=== PATIENT | female | born 2000 | race Caucasian/White ===

== ENCOUNTER 2018-12-27 12:48 | Inpatient (IN) | payer BC ==
--- NOTE | 2018-12-27 13:55 | ED ---
Psych HPI - General Chief Complaint: Psychiatric Symptoms Stated Complaint: Psych evaluation Time Seen by Provider: 12/27/18 13:04 Source: patient, RN notes reviewed Mode of arrival: ambulatory - History of Present Illness Initial Comments: Is a 18-year-old female who presents by the parents with complaints of depression and desire to jump out of a moving vehicle this morning. She states she's been dealing with depression for about a month and a half now she states she had an argument about a week ago significant other which also involved her biological father. He denies any drugs or alcohol or other modifying factors at this time. She states she also decreased appetite she is purposely trying to avoid certain foods. No prior diagnosis or history of depression and prior to these recent events patient does state her last menstrual period was December 12 of this year. MD Complaint: suicidal ideation, feels depressed - Related Data Home Medications Medication Instructions Recorded Confirmed No Known Home Medications 12/27/18 12/27/18 Allergies Allergy/AdvReac Type Severity Reaction Status Date / Time No Known Allergies Allergy Verified 12/27/18 13:16 Review of Systems ROS Statement: Those systems with pertinent positive or pertinent negative responses have been documented in the HPI. ROS Other: All systems not noted in ROS Statement are negative. Past Medical History Past Medical History: No Reported History History of Any Multi-Drug Resistant Organisms: None Reported Additional Past Surgical History / Comment(s): eye surgery Past Psychological History: Depression Smoking Status: Never smoker Past Alcohol Use History: None Reported Past Drug Use History: None Reported General Exam - General Exam Comments Initial Comments: This is a well-developed well-nourished awake alert oriented 3 female Limitations: no limitations General appearance: alert, in no apparent distress Head exam: Present: atraumatic, normocephalic, normal inspection Eye exam: Present: normal appearance, PERRL, EOMI. Absent: scleral icterus, conjunctival injection, periorbital swelling ENT exam: Present: normal exam, mucous membranes moist Neck exam: Present: normal inspection. Absent: tenderness, meningismus, lymphadenopathy Respiratory exam: Present: normal lung sounds bilaterally. Absent: respiratory distress, wheezes, rales, rhonchi, stridor Cardiovascular Exam: Present: regular rate, normal rhythm, normal heart sounds. Absent: systolic murmur, diastolic murmur, rubs, gallop, clicks GI/Abdominal exam: Present: soft, normal bowel sounds. Absent: distended, tenderness, guarding, rebound, rigid Extremities exam: Present: normal inspection, full ROM, normal capillary refill. Absent: tenderness, pedal edema, joint swelling, calf tenderness Back exam: Present: normal inspection Neurological exam: Present: alert, oriented X3, CN II-XII intact Psychiatric exam: Present: depressed, flat affect, suicidal ideation Skin exam: Present: warm, dry, normal color, other (Several areas on the forearms appear to be consistent with picking.). Absent: rash Course Vital Signs 12/27/18 12/27/18 12/27/18 12:56 15:15 17:15 Temperature 98.5 F Pulse Rate 83 Respiratory 18 17 18 Rate Blood Pressure 141/85 O2 Sat by Pulse 99 Oximetry - Reevaluation(s) Reevaluation #1: 12/27/18 16:25 Patient later complained of a 7/10 headache some recent shakiness. Further workup is in progress Medical Decision Making - Medical Decision Making Patient was evaluated by the psychiatric service and will be admitted for inpatient treatment of depression. The lab work and CAT scan were negative. I did discuss with the patient and her family. - Lab Data Result diagrams: 12/27/18 16:50 12/27/18 16:50 Lab Results 12/27/18 12/27/18 12/27/18 Range/Units 14:00 14:00 16:50 WBC 8.7 (4.0-11.0) k/uL RBC 4.68 (3.80-5.40) m/uL Hgb 13.6 (11.4-16.0) gm/dL Hct 40.6 (34.0-46.0) % MCV 86.8 (80.0-100.0) fL MCH 29.0 (25.0-35.0) pg MCHC 33.4 (31.0-37.0) g/dL RDW 12.8 (11.5-15.5) % Plt Count 336 (150-450) k/uL Neutrophils % 70 % Lymphocytes % 21 % Monocytes % 5 % Eosinophils % 2 % Basophils % 1 % Neutrophils # 6.1 (1.3-7.7) k/uL Lymphocytes # 1.8 (1.0-4.8) k/uL Monocytes # 0.5 (0-1.0) k/uL Eosinophils # 0.2 (0-0.7) k/uL Basophils # 0.0 (0-0.2) k/uL Sodium (137-145) mmol/L Potassium (3.5-5.1) mmol/L Chloride (98-107) mmol/L Carbon Dioxide (22-30) mmol/L Anion Gap mmol/L BUN (7-17) mg/dL Creatinine (0.52-1.04) mg/dL Est GFR (CKD-EPI)AfAm (>60 ml/min/1.73 sqM) Est GFR (CKD-EPI)NonAf (>60 ml/min/1.73 sqM) Glucose (74-99) mg/dL Calcium (8.4-10.2) mg/dL Magnesium (1.6-2.3) mg/dL Total Bilirubin (0.2-1.3) mg/dL AST (14-36) U/L ALT (9-52) U/L Alkaline Phosphatase (38-126) U/L Creatine Kinase (30-135) U/L Total Protein (6.3-8.2) g/dL Albumin (3.5-5.0) g/dL Urine HCG, Qual Not Detected (Not Detectd) Urine Opiates Screen Not Detected (NotDetected) Ur Oxycodone Screen Not Detected (NotDetected) Urine Methadone Screen Not Detected (NotDetected) Ur Propoxyphene Screen Not Detected (NotDetected) Ur Barbiturates Screen Not Detected (NotDetected) U Tricyclic Antidepress Not Detected (NotDetected) Ur Phencyclidine Scrn Not Detected (NotDetected) Ur Amphetamines Screen Not Detected (NotDetected) U Methamphetamines Scrn Not Detected (NotDetected) U Benzodiazepines Scrn Not Detected (NotDetected) Urine Cocaine Screen Not Detected (NotDetected) U Marijuana (THC) Screen Not Detected (NotDetected) 12/27/18 Range/Units 16:50 WBC (4.0-11.0) k/uL RBC (3.80-5.40) m/uL Hgb (11.4-16.0) gm/dL Hct (34.0-46.0) % MCV (80.0-100.0) fL MCH (25.0-35.0) pg MCHC (31.0-37.0) g/dL RDW (11.5-15.5) % Plt Count (150-450) k/uL Neutrophils % % Lymphocytes % % Monocytes % % Eosinophils % % Basophils % % Neutrophils # (1.3-7.7) k/uL Lymphocytes # (1.0-4.8) k/uL Monocytes # (0-1.0) k/uL Eosinophils # (0-0.7) k/uL Basophils # (0-0.2) k/uL Sodium 141 (137-145) mmol/L Potassium 4.3 (3.5-5.1) mmol/L Chloride 102 (98-107) mmol/L Carbon Dioxide 26 (22-30) mmol/L Anion Gap 13 mmol/L BUN 5 L (7-17) mg/dL Creatinine 0.54 (0.52-1.04) mg/dL Est GFR (CKD-EPI)AfAm >90 (>60 ml/min/1.73 sqM) Est GFR (CKD-EPI)NonAf >90 (>60 ml/min/1.73 sqM) Glucose 88 (74-99) mg/dL Calcium 10.2 (8.4-10.2) mg/dL Magnesium 1.8 (1.6-2.3) mg/dL Total Bilirubin 0.3 (0.2-1.3) mg/dL AST 20 (14-36) U/L ALT 24 (9-52) U/L Alkaline Phosphatase 72 (38-126) U/L Creatine Kinase 55 (30-135) U/L Total Protein 8.7 H (6.3-8.2) g/dL Albumin 5.0 (3.5-5.0) g/dL Urine HCG, Qual (Not Detectd) Urine Opiates Screen (NotDetected) Ur Oxycodone Screen (NotDetected) Urine Methadone Screen (NotDetected) Ur Propoxyphene Screen (NotDetected) Ur Barbiturates Screen (NotDetected) U Tricyclic Antidepress (NotDetected) Ur Phencyclidine Scrn (NotDetected) Ur Amphetamines Screen (NotDetected) U Methamphetamines Scrn (NotDetected) U Benzodiazepines Scrn (NotDetected) Urine Cocaine Screen (NotDetected) U Marijuana (THC) Screen (NotDetected) - Radiology Data Radiology results: report reviewed (I did review the imaging and report no acute findings.), image reviewed Disposition Clinical Impression: Depression Disposition: TRANSFER TO PSYCH HOSP/UNIT Condition: Stable Referrals: Contreras Watters MD [Primary Care Provider] - 1-2 days
[2018-12-27 14:35] LABS: Amphetamine Screen,Urine Not Detected (NotDetected); Barbiturate Screen,Urine Not Detected (NotDetected); Benzodiazepines Screen,Urine Not Detected (NotDetected); Cocaine Screen,Urine Not Detected (NotDetected); Methadone Screen, Urine Not Detected (NotDetected); Opiate Screen,Urine Not Detected (NotDetected); Oxycodone Screen, Urine Not Detected (NotDetected); Phencyclidine Screen,Urine Not Detected (NotDetected); Tricyclic Antidepressant,Urine Not Detected (NotDetected); Urn Cannabinoid Scrn Not Detected (NotDetected)
[2018-12-27] MEDS ORDERED: ACETAMINOPHEN TAB 500 MG TAB PO STA (16:23)
[2018-12-27 17:01] LABS: Basophils % (A) 1 %; Eosinophils # (A) 0.2 k/uL (0-0.7); Eosinophils % (A) 2 %; HCT 40.6 % (34.0-46.0); HGB 13.6 gm/dL (11.4-16.0); Lymphocytes # (A) 1.8 k/uL (1.0-4.8); Lymphocytes % (A) 21 %; MCHC 33.4 g/dL (31.0-37.0); MCV 86.8 fL (80.0-100.0); Mean Platelet Volume 7.7; Monocytes # (A) 0.5 k/uL (0-1.0); Monocytes % (A) 5 %; Neutrophils # (A) 6.1 k/uL (1.3-7.7); Neutrophils % (A) 70 %; Platelet Count 336 k/uL (150-450); RBC 4.68 m/uL (3.80-5.40); RDW 12.8 % (11.5-15.5); WBC 8.7 k/uL (4.0-11.0)
[2018-12-27 17:10] LABS: ALT 24 U/L (9-52); AST 20 U/L (14-36); African American GFR (CKD) >90 (>60 ml/min/1.73 sqM); Alkaline Phosphatase 72 U/L (38-126); Anion Gap 13 mmol/L; Blood Urea Nitrogen 5 mg/dL (7-17); Calcium 10.2 mg/dL (8.4-10.2); Carbon Dioxide 26 mmol/L (22-30); Chloride 102 mmol/L (98-107); Creatine Kinase 55 U/L (30-135); Glucose 88 mg/dL (74-99); Magnesium 1.8 mg/dL (1.6-2.3); Potassium 4.3 mmol/L (3.5-5.1); Sodium 141 mmol/L (137-145); Total Bilirubin 0.3 mg/dL (0.2-1.3); Total Protein 8.7 g/dL (6.3-8.2)
--- NOTE | 2018-12-27 17:14 | CT ---
EXAMINATION TYPE: CT brain wo con DATE OF EXAM: 12/27/2018 COMPARISON: None HISTORY: Headaches CT DLP: 1099.4 mGycm. Automated Exposure Control for Dose Reduction was Utilized. TECHNIQUE: CT scan of the head is performed without contrast. FINDINGS: Ventricles and sulci appear normal. There is no mass effect nor midline shift. There is no sign of intracranial hemorrhage. The calvarium is intact. IMPRESSION: Negative head CT scan.
[2018-12-27] MEDS ORDERED: ZIPRASIDONE 20 MG VIAL IM PRN (23:57)
[2018-12-27] MEDS ORDERED: MAG HYDROX/AL HYDROX/SIMETH 30 ML CUP PO PRN (23:57)
[2018-12-27] MEDS ORDERED: LORazepam 1 MG TAB PO PRN (23:57)
[2018-12-27] MEDS ORDERED: LORazepam 2 MG/ML INJ IM PRN (23:59)
[2018-12-28 00:17] VITALS: BMI 32.1
--- NOTE | 2018-12-28 07:10 | P.MDCNMH ---
History of Present Illness H&P Date: 12/28/18 Chief Complaint: Depression 18-year-old female with no significant past medical history Patient presented to Hospital with depressed mood she reports couple weeks of feeling down and hopeless denies any suicidal ideation or homicidal thoughts. She has never had any mental health diagnoses in the past. Denies any medical history. She doesn't take any medications at home. Patient denies any fevers chills coughing chest pain trouble breathing abdominal pain nausea vomiting or any changes in her urinary or bowel habits. Review of Systems Pertinent positives as noted in HPI. All other systems were reviewed and are negative Past Medical History Past Medical History: No Reported History History of Any Multi-Drug Resistant Organisms: None Reported Additional Past Surgical History / Comment(s): eye surgery Past Anesthesia/Blood Transfusion Reactions: No Reported Reaction Past Psychological History: Depression Smoking Status: Never smoker Past Alcohol Use History: None Reported Past Drug Use History: None Reported - Past Family History Mother Family Medical History: No Reported History Father Family Medical History: No Reported History Medications and Allergies Home Medications Medication Instructions Recorded Confirmed Type No Known Home Medications 12/27/18 12/28/18 History Allergies Allergy/AdvReac Type Severity Reaction Status Date / Time No Known Allergies Allergy Verified 12/28/18 00:02 Physical Exam Vitals: Vital Signs Temp Pulse Pulse Resp BP BP Pulse Ox 12/28/18 06:43 98.2 F 89 16 127/72 12/28/18 00:06 98.5 F 82 16 129/86 100 12/27/18 23:49 98.5 F 82 16 129/86 100 12/27/18 21:44 98.3 F 78 18 113/76 98 12/27/18 17:15 18 12/27/18 15:15 17 12/27/18 12:56 98.5 F 83 18 141/85 99 Constitutional: No acute distress, conversant, pleasant Eyes: Anicteric sclerae, moist conjunctiva, no lid-lag, positive for horizontal nystagmus Pupils equal round reactive to light ENMT: NC/AT Oropharynx clear, no erythema, or exudates Neck: Supple, FROM, no masses, or JVD No carotid bruits No thyromegaly Lungs: Clear to auscultation Clear to percussion Normal respiratory effort, no accessory muscle use Cardiovascular: Heart regular in rate and rhythm, No murmurs, gallops, or rubs No peripheral edema Abdominal: Soft Nontender, no guarding, rebound or rigidity Abdomen moving with respiration Normoactive bowel sounds No hepatomegaly, No splenomegaly No palpable mass No abdominal wall hernia noted Skin: Normal temperature, tone, texture, turgor No induration No subcutaneous nodules No rash, lesions No ulcers Extremities: No digital cyanosis No clubbing Pedal pulses intact and symmetrical Radial pulses intact and symmetrical No calf tenderness Psychiatric: Alert and oriented to person, place and time Avoids eye contact flat affect fair judgment Neuro Muscles Strength 5/5 in all 4 extremities Sensation to light touch grossly present throughout Cranial nerves II-XII grossly intact, exception to this patient has some degree of lazy eye with history of corrective surgery No focal sensory deficits Lymphatics: no palpable cervical or supraclavicular , or inguinal lymph nodes Cranial Nerve Examination - Cranial Nerves Cranial Nerve II- Optic: Intact Cranial Nerve III- Oculomotor: Intact Cranial Nerve IV- Trochlear: Intact Cranial Nerve V- Trigeminal: Intact Cranial Nerve - Abducens: Intact Cranial Nerve VII- Facial: Intact Cranial Nerve VIII- Auditory: Intact Cranial Nerve IX- Glossopharyngeal: Intact Cranial Nerve X- Vagus: Intact Cranial Nerve XI- Accessory: Intact Cranial Nerve XII- Hypoglossal: Intact Results CBC & Chem 7: 12/27/18 16:50 12/27/18 16:50 Labs: Abnormal Lab Results - Last 24 Hours (Table) 12/27/18 Range/Units 16:50 BUN 5 L (7-17) mg/dL Total Protein 8.7 H (6.3-8.2) g/dL Assessment and Plan Assessment: 18-year-old female with no significant past medical history admitted to mental health unit due to overwhelming depression currently denies any medical complaints Plan: Depression Management per psych Low risk for DVT patient is ambulatory Follow-up labs Thank you for allowing us to participate in the care of this patient. We will follow peripherally. Do not hesitate to contact us with questions. Someone can be reached from the [facility] hospitalist group at all hours of the day at [phone].
[2018-12-28] MEDS: SERTRALINE 50 MG TAB PO SCH (13:07)
--- NOTE | 2018-12-28 13:21 | P.HP ---
Psychiatric H&P - . H&P Date: 12/28/18 History & Physical: Allergies Allergy/AdvReac Type Severity Reaction Status Date / Time No Known Allergies Allergy Verified 12/28/18 00:02 Vital Signs Temp 98.2 F 12/28/18 06:43 Pulse 89 12/28/18 06:43 Resp 16 12/28/18 06:43 BP 127/72 12/28/18 06:43 Pulse Ox 100 12/28/18 00:06 Intake & Output 12/27/18 12/28/18 12/28/18 18:59 06:59 18:59 Weight 92.986 kg Laboratory Last Values WBC 8.7 k/uL (4.0-11.0) 12/27/18 16:50 RBC 4.68 m/uL (3.80-5.40) 12/27/18 16:50 Hgb 13.6 gm/dL (11.4-16.0) 12/27/18 16:50 Hct 40.6 % (34.0-46.0) 12/27/18 16:50 MCV 86.8 fL (80.0-100.0) 12/27/18 16:50 MCH 29.0 pg (25.0-35.0) 12/27/18 16:50 MCHC 33.4 g/dL (31.0-37.0) 12/27/18 16:50 RDW 12.8 % (11.5-15.5) 12/27/18 16:50 Plt Count 336 k/uL (150-450) 12/27/18 16:50 Neutrophils % 70 % 12/27/18 16:50 Lymphocytes % 21 % 12/27/18 16:50 Monocytes % 5 % 12/27/18 16:50 Eosinophils % 2 % 12/27/18 16:50 Basophils % 1 % 12/27/18 16:50 Neutrophils # 6.1 k/uL (1.3-7.7) 12/27/18 16:50 Lymphocytes # 1.8 k/uL (1.0-4.8) 12/27/18 16:50 Monocytes # 0.5 k/uL (0-1.0) 12/27/18 16:50 Eosinophils # 0.2 k/uL (0-0.7) 12/27/18 16:50 Basophils # 0.0 k/uL (0-0.2) 12/27/18 16:50 Sodium 141 mmol/L (137-145) 12/27/18 16:50 Potassium 4.3 mmol/L (3.5-5.1) 12/27/18 16:50 Chloride 102 mmol/L (98-107) 12/27/18 16:50 Carbon Dioxide 26 mmol/L (22-30) 12/27/18 16:50 Anion Gap 13 mmol/L 12/27/18 16:50 BUN 5 mg/dL (7-17) L 12/27/18 16:50 Creatinine 0.54 mg/dL (0.52-1.04) 12/27/18 16:50 Est GFR (CKD-EPI)AfAm >90 (>60 ml/min/1.73 sqM) 12/27/18 16:50 Est GFR (CKD-EPI)NonAf >90 (>60 ml/min/1.73 sqM) 12/27/18 16:50 Glucose 88 mg/dL (74-99) 12/27/18 16:50 Calcium 10.2 mg/dL (8.4-10.2) 12/27/18 16:50 Magnesium 1.8 mg/dL (1.6-2.3) 12/27/18 16:50 Total Bilirubin 0.3 mg/dL (0.2-1.3) 12/27/18 16:50 AST 20 U/L (14-36) 12/27/18 16:50 ALT 24 U/L (9-52) 12/27/18 16:50 Alkaline Phosphatase 72 U/L (38-126) 12/27/18 16:50 Creatine Kinase 55 U/L (30-135) 12/27/18 16:50 Total Protein 8.7 g/dL (6.3-8.2) H 12/27/18 16:50 Albumin 5.0 g/dL (3.5-5.0) 12/27/18 16:50 Triglycerides 109 mg/dL (<150) 12/28/18 08:43 Cholesterol 192 mg/dL (<200) 12/28/18 08:43 LDL Cholesterol, Calc 126 mg/dL (0-99) H 12/28/18 08:43 HDL Cholesterol 44 mg/dL (40-60) 12/28/18 08:43 TSH 0.965 mIU/L (0.465-4.680) 12/28/18 08:43 Urine HCG, Qual Not Detected (Not Detectd) 12/27/18 14:00 Urine Opiates Screen Not Detected (NotDetected) 12/27/18 14:00 Ur Oxycodone Screen Not Detected (NotDetected) 12/27/18 14:00 Urine Methadone Screen Not Detected (NotDetected) 12/27/18 14:00 Ur Propoxyphene Screen Not Detected (NotDetected) 12/27/18 14:00 Ur Barbiturates Screen Not Detected (NotDetected) 12/27/18 14:00 U Tricyclic Antidepress Not Detected (NotDetected) 12/27/18 14:00 Ur Phencyclidine Scrn Not Detected (NotDetected) 12/27/18 14:00 Ur Amphetamines Screen Not Detected (NotDetected) 12/27/18 14:00 U Methamphetamines Scrn Not Detected (NotDetected) 12/27/18 14:00 U Benzodiazepines Scrn Not Detected (NotDetected) 12/27/18 14:00 Urine Cocaine Screen Not Detected (NotDetected) 12/27/18 14:00 U Marijuana (THC) Screen Not Detected (NotDetected) 12/27/18 14:00 12/28/18 13:11 IDENTIFYING DATA: Patient is a 18-year-old female who currently lives with her adoptive family, 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 HPI: Patient presented to the hospital after complaints of an increase in her depressive symptoms along with suicidal ideations with thoughts of jumping out of a moving car. She states that for the past 3 months she is having an increase in her depressive symptoms with an increase in her suicidal ideations and thinking in the past week. She states that she is having multiple stressors at home including having more fights with her biological father and her current boyfriend. She states that she is trying to be honest with them and come clean about her past. She states that she was previously lying and min manipulative towards people. She endorses feelings of guilt claiming "I put them in a deep hole". She spoke of feeling "on edge" and describing irritability which has been increasing. She also states that she was overworked at her current job and called them up the day before she came in to the hospital and told them that she quit. She states that there has been more strained with her adoptive family as she claims that they did not accept her and are putting "pressure on me". She spoke about recently losing her virginity to her boyfriend which she states that her adoptive family does not agree with. She endorses poor sleep and poor appetite. Patient denies any current suicidal or homicidal ideations intent or plan. At this time patient denies any auditory or visual hallucinations. Patient denies any flight of ideas racing thoughts and increased in goal directed behavior. Patient denies use using any drugs or alcohol, including marijuana. Patient denies smoking cigarettes. PAST PSYCHIATRIC HISTORY: Patient claims that she was going to follow up with [facility] for counseling however has not done this yet. She denies any previous psychiatric hospitalizations and claims that she has been put on antidepressant medications in the past however discontinued it and does not know the name of the medication. She denies any previous suicide attempts. PMH: Denies ALLERGIES: [NKDA] CHEMICAL DEPENDENCY HISTORY: As per HPI FAMILY PSYCHIATRIC/SUBSTANCE USE HISTORY: Claims her mother and father suffered from depression SOCIAL HISTORY: States that she was born and raised in [facility] and currently lives in [place]. She states that she stopped going to school and sophomore year. She states that she's been working in factories and recently quit her job on Thursday. She currently lives with her adoptive family, single with no kids. MENTAL STATUS EXAM: General Appearance: Patient appears to be older than stated age, is alert cooperative however has poor hygiene and poor grooming. Behavior: [Patient is calmly seated without any agitated behavior.] Speech: Patient's speech is fluent and nonpressured. Soft tone Mood/Affect: Patient reports their mood is "depressed", affect is congruent and constricted. Suicidality/Homicidality: Patient denies having any suicidal or homicidal ideation intent or plan. Perceptions: Patient denies any auditory or visual hallucinations. Though content/process: There is no evidence of any delusional thought content and thought process is linear and goal-directed. Memory and concentration: AOX3, grossly intact for the purposes of this session. Can spell "WORLD" backwards Judgment and insight: Poor STRENGTHS/WEAKNESSES: Has good social support however has poor coping skills and poor insight. INTELLECT: Below average IMPRESSIONS: Major depressive disorder, moderate-severe PLAN: -Patient is admitted under [voluntary] status to MHU for stabilization of psychiatric symptoms and safety. Patient signed adult voluntary form and medication consent and is placed in patient's chart. -Medications : Will start patient on sertraline 50 mg daily with 1 dose now for mood and anxiety. Will titrate up as tolerated. Will also start patient on trazodone 25 mg daily at bedtime for mood and insomnia. -Ativan PRN for agitation/aggression -Patient was informed of the risks, benefits and side effects of the medication and patient verbally consented to taking the medications. Patient signed med consent form and was placed in chart. -NRT - none needed at this time as patient does not smoke. -LUZMARIA on board for discharge planning 12/28/18 13:16 12/28/18 13:20
[2018-12-28 18:19] LABS: Hemoglobin A1C 5.4 % (4.0-6.0)
[2018-12-28] MEDS: traZODone HCL 50 MG TAB PO SCH (21:00)
[2018-12-29] MEDS: SERTRALINE 50 MG TAB PO SCH (08:48)
[2018-12-29] MEDS: ACETAMINOPHEN TAB 325 MG TAB PO PRN ×2 (09:29→18:40)
--- NOTE | 2018-12-29 14:33 | P.PN ---
Progress Note - Text Progress Note Date: 12/29/18 Interval History: Patient was seen in the hallways wandering and was agreeable to speak the signwriter in the office. Patient appears to have a brighter affect this morning and was directable and cooperative with signwriter. She states that she is continuing talk with her family to work on her social stressors. She spoke about wanting to reconnect more with her biological dad. Patient states that she is making new friends on the unit and is participating in groups while. She states her sleep was "much better" when compared to yesterday and states that she feels medication is helping her. She claims her energy level is fair. Appetite is good. She claims her mood is gradually improving along with her anxiety. At this time patient denies any suicidal or homical ideations, intent or plan. Patient denies any auditory, visual hallucinations and denies any paranoia or delusions. Patient denies any side effects from the medications and has been compliant with meds. Mental Status Exam: General Appearance: Patient appears to be older than stated age, is alert cooperative however has poor hygiene and poor grooming. Behavior: Patient is calmly seated without any agitated behavior. Speech: Patient's speech is fluent and nonpressured. Mood/Affect: Patient reports their mood is "depressed", affect is congruent and constricted. Suicidality/Homicidality: Patient denies having any suicidal or homicidal ideation intent or plan. Perceptions: Patient denies any auditory or visual hallucinations. Though content/process: There is no evidence of any delusional thought content and thought process is linear and goal-directed. Memory and concentration: AOX3, grossly intact for the purposes of this session. Judgment and insight: Poor, improving mildly. IMPRESSIONS: Major depressive disorder, moderate-severe PLAN: -Patient continues to meet criteria for inpatient psychiatric hospitalization under voluntary status on the MHU for stabilization of psychiatric symptoms and safety. Patient has signed adult voluntary form and medication consent and is placed in patient's chart. -Medications : Will continue increasing sertraline to 100 mg daily for mood and anxiety. Will titrate up as tolerated. Will continue with trazodone 25 mg daily at bedtime for mood and insomnia. -Ativan PRN for agitation/aggression -Patient was encouraged to continue attending groups and engage in bennett milieu. -NRT - none needed at this time as patient does not smoke. -SW on board for discharge planning
[2018-12-29] MEDS: traZODone HCL 50 MG TAB PO SCH (21:00)
[2018-12-30] MEDS: SERTRALINE 100 MG TAB PO SCH (08:43)
--- NOTE | 2018-12-30 09:55 | P.PN ---
Progress Note - Text Progress Note Date: 12/30/18 Interval History: Patient was seen in the hallways wandering speaking to another patient and was agreeable to be seen in the office. Patient appears to be somewhat more directable and cooperative with rfp writer. She states that she is doing better on the unit interacting with more people and trying to go to groups. Patient spoke about learning new coping skills and activities that help decrease her stress level including driving and coloring. She spoke about wanting to reconnect more with her biological dad and mother and states that she had to send her adoptive mother out of the unit and does not want her visiting, patient does not give clear reason as to why she feels this way. She states her sleep was disrupted last night and claims that she had several awakenings and does not know why. Patient requested to go up on her trazodone at this time. She claims her energy level is fair. Appetite is good. She claims her mood and anxiety are gradually improving. At this time patient denies any suicidal or homical ideations, intent or plan. Patient denies any auditory, visual hallucinations and denies any paranoia or delusions. Patient denies any side effects from the medications and has been compliant with meds. Mental Status Exam: General Appearance: Patient appears to be older than stated age, is alert cooperative however has improving hygiene and poor grooming. Behavior: Patient is calmly seated without any agitated behavior. Speech: Patient's speech is fluent and nonpressured. Mood/Affect: Patient reports their mood is "getting there", affect is congruent and constricted. Suicidality/Homicidality: Patient denies having any suicidal or homicidal ideation intent or plan. Perceptions: Patient denies any auditory or visual hallucinations. Though content/process: There is no evidence of any delusional thought content and thought process is linear and goal-directed. Memory and concentration: AOX3, grossly intact for the purposes of this session. Judgment and insight: Poor, improving mildly. IMPRESSIONS: Major depressive disorder, moderate-severe PLAN: -Patient continues to meet criteria for inpatient psychiatric hospitalization under voluntary status on the MHU for stabilization of psychiatric symptoms and safety. Patient has signed adult voluntary form and medication consent and is placed in patient's chart. -Medications : Continue with sertraline 100 mg daily for mood and anxiety. Will titrate up as tolerated. Will increase trazodone to 50 mg daily at bedtime for mood and insomnia. -Ativan PRN for agitation/aggression -Patient was encouraged to continue attending groups and engage in bennett milieu. -NRT - none needed at this time as patient does not smoke. -SW on board for discharge planning. Will need a family meeting prior to discharge.
[2018-12-30] MEDS: ACETAMINOPHEN TAB 325 MG TAB PO PRN (14:46)
[2018-12-30] MEDS: PANTOPRAZOLE 40 MG TABLET PO SCH (16:32)
[2018-12-30] MEDS: traZODone HCL 50 MG TAB PO SCH (21:03)
[2018-12-31] MEDS: SERTRALINE 100 MG TAB PO SCH (08:26)
[2018-12-31] MEDS: PANTOPRAZOLE 40 MG TABLET PO SCH (08:26)
--- NOTE | 2018-12-31 09:31 | P.PN ---
Progress Note - Text Progress Note Date: 12/31/18 Interval History: Patient was seen in the hallways wandering speaking to another patient and was agreeable to be seen in the office. Patient claims that she has been thinking a lot about her situation at home with her adoptive parents. She explains that she would like to move out and move in with her biological father and states that "everybody needs a second chance". We discussed the different possibilities in the benefits and drawbacks to reject discharge plan an option and patient appears to have very limited insight. Patient spoke about learning new coping skills and activities that she is learning in groups and is finding that she is interacting more with other people on the unit. She states her sleep was improved last night now that she is on a higher dose of trazodone. She claims her energy level is fair. Appetite is fair. She claims her mood and anxiety are gradually improving. At this time patient denies any suicidal or homical ideations, intent or plan. Patient denies any auditory, visual hallucinations and denies any paranoia or delusions. Patient denies any side effects from the medications and has been compliant with meds. Mental Status Exam: General Appearance: Patient appears to be older than stated age, is alert cooperative however has improving hygiene and poor grooming. Behavior: Patient is calmly seated without any agitated behavior. Speech: Patient's speech is fluent and nonpressured. Mood/Affect: Patient reports their mood is "better", affect is congruent Suicidality/Homicidality: Patient denies having any suicidal or homicidal ideation intent or plan. Perceptions: Patient denies any auditory or visual hallucinations. Though content/process: There is no evidence of any delusional thought content and thought process is linear and goal-directed. Memory and concentration: AOX3, grossly intact for the purposes of this session. Judgment and insight: Limited, improving mildly. IMPRESSIONS: Major depressive disorder, moderate-severe PLAN: -Patient continues to meet criteria for inpatient psychiatric hospitalization under voluntary status on the MHU for stabilization of psychiatric symptoms and safety. Patient has signed adult voluntary form and medication consent and is placed in patient's chart. -Medications : Continue with sertraline 100 mg daily for mood and anxiety. Will continue with trazodone to 50 mg daily at bedtime for mood and insomnia. -Ativan PRN for agitation/aggression -Patient was encouraged to continue attending groups and engage in bennett milieu and encouraged to continue learning coping skills. -NRT - none needed at this time as patient does not smoke. -SW on board for discharge planning. Will need a family meeting prior to discharge. Patient to contact family for visit over the weekend and to clarify disposition. Likely discharge early next week
[2018-12-31] MEDS: ACETAMINOPHEN TAB 325 MG TAB PO PRN (18:32)
[2018-12-31] MEDS: traZODone HCL 50 MG TAB PO SCH (20:48)
[2019-01-01] MEDS: SERTRALINE 100 MG TAB PO SCH (07:49)
[2019-01-01] MEDS: PANTOPRAZOLE 40 MG TABLET PO SCH (07:49)
[2019-01-01] MEDS: MAGNESIUM HYDROXIDE 2,400 MG/10 ML CUP PO PRN (13:19)
[2019-01-01] MEDS: ACETAMINOPHEN TAB 325 MG TAB PO PRN (15:05)
--- NOTE | 2019-01-01 16:28 | P.PN ---
Progress Note - Text Progress Note Date: 01/01/19 IDENTIFICATION DATA: 18-year-old female admitted to mental health unit with depression and suicidal ideations. INTERVAL HISTORY: Patient was seen today. She says she is looking forward towards her discharge. She report s feeling safe to be released to go home. She reports being compliant with medications. She reports headache and attributes it to being Zoloft. She rates her headache to be 5/10, 10 being worst. She reports Tylenol has been helping her with headaches. She states her mood is better and claims she no longer has bad thoughts. She reports good sleep and appetite. She reports going to some groups and not all. She reports feeling uncomfortable around certain patients and staff. MENTAL STATUS EXAMINATION: 18 year old woman. She is obese, dressed formally, appears her stated age, in fair grooming and hygeine . Maintains good eye contact. speech and thought process are goal directed. Mood is reported as good and affect apprpriate. Denies current auditory or visual hallucinations and paranoid ideations. She is alert and oriented x 4. Denies current suicidal or homicidal ideations. insight and judgment are improving ASSESSMENT Major depressive disorder, moderate-severe PLAN: Continue sertraline and trazodone
[2019-01-01] MEDS: traZODone HCL 50 MG TAB PO SCH (20:29)
[2019-01-02] MEDS: ACETAMINOPHEN TAB 325 MG TAB PO PRN ×2 (08:01→14:20)
[2019-01-02] MEDS: PANTOPRAZOLE 40 MG TABLET PO SCH (08:02)
[2019-01-02] MEDS: SERTRALINE 100 MG TAB PO SCH (08:02)
--- NOTE | 2019-01-02 15:31 | P.PN ---
Progress Note - Text Progress Note Date: 01/02/19 IDENTIFICATION DATA: 18-year-old female admitted to mental health unit with depression and suicidal ideations. INTERVAL HISTORY: Patient was seen today. She claims to have taken tylenol for headache and says her concentration was affected due to her headache. She stated her short term goal goal was to better her family relation ships and her long term care administrator goal is to join . Over all she reports feeling good and rates her depression as 2/10 , 10 being worst. She reports being hopeful, with better energy levels and motivation. MENTAL STATUS EXAMINATION: 18 year old woman. She is obese, dressed formally, appears her stated age, in fair grooming and hygeine . Maintains good eye contact. speech and thought process are goal directed. Mood is reported as much better and affect apprpriate. Denies current auditory or visual hallucinations and paranoid ideations. She is alert and oriented x 4. Denies current suicidal or homicidal ideations. insight and judgment are improving ASSESSMENT Major depressive disorder, moderate-severe PLAN: Continue sertraline and trazodone
[2019-01-02] MEDS: traZODone HCL 50 MG TAB PO SCH (20:07)
[2019-01-03] MEDS: PANTOPRAZOLE 40 MG TABLET PO SCH (07:46)
[2019-01-03] MEDS: SERTRALINE 100 MG TAB PO SCH (08:39)
--- NOTE | 2019-01-03 10:26 | P.PN ---
Progress Note - Text Progress Note Date: 01/03/19 Interval History: Patient was seen in the [facility] and was agreeable to be seen in the office. Patient states that she had a good weekend however claims that she did experience a headache after taking the Zoloft for the past 2 days and states that Tylenol has helped however is requesting Motrin as she claims that it helps better with her headaches in the past. Patient states that she is continuing to talk with her biological family however has not made contact with her biological dad in the past 2 days as his phone has been off and patient would like to be discharged there. Patient also states that her adoptive family has "cut ties with me" and states that she would like to proceed without them She states her sleep was improved last night She claims her energy level is fair. Appetite is fair. She claims her mood and anxiety are gradually improving. At this time patient denies any suicidal or homical ideations, intent or plan. Patient denies any auditory, visual hallucinations and denies any paranoia or delusions. Patient denies any side effects from the medications and has been compliant with meds. Mental Status Exam: General Appearance: Patient appears to be older than stated age, is alert cooperative however has improving hygiene and poor grooming. Behavior: Patient is calmly seated without any agitated behavior. Speech: Patient's speech is fluent and nonpressured. Mood/Affect: Patient reports their mood is "good", affect is congruent Suicidality/Homicidality: Patient denies having any suicidal or homicidal ideation intent or plan. Perceptions: Patient denies any auditory or visual hallucinations. Though content/process: There is no evidence of any delusional thought content and thought process is linear and goal-directed. Memory and concentration: AOX3, grossly intact for the purposes of this session. Judgment and insight: Limited, improving mildly. IMPRESSIONS: Major depressive disorder, moderate-severe PLAN: -Patient continues to meet criteria for inpatient psychiatric hospitalization under voluntary status on the MHU for stabilization of psychiatric symptoms and safety. Patient has signed adult voluntary form and medication consent and is placed in patient's chart. -Medications : Continue with sertraline 100 mg daily for mood and anxiety. Will continue with trazodone to 50 mg daily at bedtime for mood and insomnia. -Ativan PRN for agitation/aggression -Patient was encouraged to continue attending groups and engage in bennett milieu and encouraged to continue learning coping skills. -NRT - none needed at this time as patient does not smoke. -SW on board for discharge planning. Will need a family meeting prior to dis charge. Will attempt family meeting tomorrow and discharge in the afternoon tomorrow.
[2019-01-03] MEDS: IBUPROFEN 400 MG TAB PO PRN (12:21)
[2019-01-03] MEDS: MAGNESIUM HYDROXIDE 2,400 MG/10 ML CUP PO PRN (13:55)
[2019-01-03] MEDS: traZODone HCL 50 MG TAB PO SCH (20:22)
[2019-01-04 06:32] VITALS: BP 119/70; PULSE 85; RESP 18; TEMP 98.1
[2019-01-04] MEDS: PANTOPRAZOLE 40 MG TABLET PO SCH (07:46)
[2019-01-04] MEDS: SERTRALINE 100 MG TAB PO SCH (08:36)
[2019-01-04] MEDS: IBUPROFEN 400 MG TAB PO PRN (08:36)
--- NOTE | 2019-01-04 09:37 | P.DS ---
Providers Date of admission: 12/27/18 22:40 Expected date of discharge: 01/04/19 Attending physician: Ernie Love MD Consults: 12/27/18 23:57 Consult Physician Routine Consulting Provider: Stacy Physician Consult Reason/Comments: H&P and medical Do you want consulting provider notified?: Yes Primary care physician: Contreras Watters - Discharge Diagnosis(es) (1) Major depressive disorder with single episode Current Visit: Yes Status: Acute Priority: High Hospital Course: Admission HPI: Patient is a 18-year-old female who currently lives with her adoptive family, 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 Patient presented to the hospital after complaints of an increase in her depressive symptoms along with suicidal ideations with thoughts of jumping out of a moving car. She states that for the past 3 months she is having an increase in her depressive symptoms with an increase in her suicidal ideations and thinking in the past week. She states that she is having multiple stressors at home including having more fights with her biological father and her current boyfriend. She states that she is trying to be honest with them and come clean about her past. She states that she was previously lying and min manipulative towards people. She endorses feelings of guilt claiming "I put them in a deep hole". She spoke of feeling "on edge" and describing irritability which has been increasing. She also states that she was overworked at her current job and called them up the day before she came in to the hospital and told them that she quit. She states that there has been more strained with her adoptive family as she claims that they did not accept her and are putting "pressure on me". She spoke about recently losing her virginity to her boyfriend which she states that her adoptive family does not agree with. She endorses poor sleep and poor appetite. Patient denies any current suicidal or homicidal ideations intent or plan. At this time patient denies any auditory or visual hallucinations. Patient denies any flight of ideas racing thoughts and increased in goal directed behavior. Patient denies use using any drugs or alcohol, including marijuana. Patient denies smoking cigarettes. Hospital course: Upon admission to the unit patient was initially depressed, isolative with suicidal ideations. Patient was agreeable however to commence treatment on the unit and throughout her hospitalization, patient got along well with other patients on the unit and followed unit protocol. Patient was compliant with the medications and initially experienced some upset stomach and diarrhea along with some headache from commencement of the medications however this subsided. Patient was started on Zoloft and was titrated up to 100 mg daily for mood. Patient was also started on trazodone and titrated up to 50 mg daily at bedtime for insomnia and mood. Patient spoke of her stressors and engaged in therapy both group and individual. Patient had multiple visits from her adoptive family along with her biological family who she was having troubles with at home and was able to work through their problems and patient eventually ended up wanting to be discharged to her biological father and his 's home. Patient claimed that she made lots of friends on the unit and was able to really work on her coping skills and her distress tolerance and learn more to verbalize her feelings and emotions. Patient was also seen by medical team for history and physical exam. Throughout the course of the hospitalization patient gradually improved with regards to mood, sleep and became future oriented with improved insight and judgment. On the day of discharge patient denied any suicidal or homicidal ideations intent or plan denied any auditory or visual hallucinations. [Patient endorsed wanting to live for her health and her future.] The patient denied any access to guns or weapons. Patient denied any paranoia and did not endorse any delusions. [Patient does not have a significant history of substance abuse however was counseled on abstaining from all substances including alcohol and marijuana.] Patient was also counseled on the medications and need for regular compliance and was encouraged to follow-up with their outpatient appointment for mental health and also for primary care. [Prior to discharge a family meeting will be arranged by social insurance analyst to answer any questions and ensure safety upon discharge.] Mental status exam: General Appearance: [Patient appears to be stated age is alert, pleasant, and cooperative with a bright affect. Patient is in no acute distress and has fair hygiene and grooming] Behavior: [Patient is calmly seated without any agitated behavior.] Speech: Patient's speech is fluent and nonpressured. Mood/Affect: Patient reports their mood is "great", affect is congruent and euthymic. Suicidality/Homicidality: Patient denies having any suicidal or homicidal ideation intent or plan. Perceptions: Patient denies any auditory or visual hallucinations. Though content/process: There is no evidence of any delusional thought content and thought process is linear and goal-directed. Memory and concentration: AOX3, grossly intact for the purposes of this session. Can spell "WORLD" backwards correctly. Judgment and insight: fair, improved Impression: Major depressive disorder, single episode. Plan: -Continue with discharge today as patient has improved and stabilized psychiatrically and is not currently an imminent threat to her self and/or others. -Continue medications: Zoloft 100 mg daily for mood. Trazodone 50 mg daily at bedtime for insomnia and mood. -Patient was counseled on the need for medication compliance and appropriate follow-up at mental health and also primary care for medical issues. Patient verbalized understanding and agreed. -Social work to connect patient with [facility] for follow-up with her psychiatric care and counseling. boiler plant worker also to contact family meeting prior to discharge to ensure safety upon discharge along with answer any questions. -Patient counseled on abstaining from recreational drugs and marijuana and alcohol. Was informed/educated on the adverse effects on their physical and mental health. -Patient was instructed to return to the hospital or seek immediate medical care if their psychiatric or medical systems do worsen or reoccur. Allergies Allergy/AdvReac Type Severity Reaction Status Date / Time No Known Allergies Allergy Verified 12/28/18 00:02 Laboratory Results WBC 8.7 k/uL (4.0-11.0) 12/27/18 16:50 RBC 4.68 m/uL (3.80-5.40) 12/27/18 16:50 Hgb 13.6 gm/dL (11.4-16.0) 12/27/18 16:50 Hct 40.6 % (34.0-46.0) 12/27/18 16:50 MCV 86.8 fL (80.0-100.0) 12/27/18 16:50 MCH 29.0 pg (25.0-35.0) 12/27/18 16:50 MCHC 33.4 g/dL (31.0-37.0) 12/27/18 16:50 RDW 12.8 % (11.5-15.5) 12/27/18 16:50 Plt Count 336 k/uL (150-450) 12/27/18 16:50 Neutrophils % 70 % 12/27/18 16:50 Lymphocytes % 21 % 12/27/18 16:50 Monocytes % 5 % 12/27/18 16:50 Eosinophils % 2 % 12/27/18 16:50 Basophils % 1 % 12/27/18 16:50 Neutrophils # 6.1 k/uL (1.3-7.7) 12/27/18 16:50 Lymphocytes # 1.8 k/uL (1.0-4.8) 12/27/18 16:50 Monocytes # 0.5 k/uL (0-1.0) 12/27/18 16:50 Eosinophils # 0.2 k/uL (0-0.7) 12/27/18 16:50 Basophils # 0.0 k/uL (0-0.2) 12/27/18 16:50 Sodium 141 mmol/L (137-145) 12/27/18 16:50 Potassium 4.3 mmol/L (3.5-5.1) 12/27/18 16:50 Chloride 102 mmol/L (98-107) 12/27/18 16:50 Carbon Dioxide 26 mmol/L (22-30) 12/27/18 16:50 Anion Gap 13 mmol/L 12/27/18 16:50 BUN 5 mg/dL (7-17) L 12/27/18 16:50 Creatinine 0.54 mg/dL (0.52-1.04) 12/27/18 16:50 Est GFR (CKD-EPI)AfAm >90 (>60 ml/min/1.73 sqM) 12/27/18 16:50 Est GFR (CKD-EPI)NonAf >90 (>60 ml/min/1.73 sqM) 12/27/18 16:50 Glucose 88 mg/dL (74-99) 12/27/18 16:[address] Glu mg/dL 108 12/28/18 08:43 Hemoglobin A1c 5.4 % (4.0-6.0) 12/28/18 08:43 Calcium 10.2 mg/dL (8.4-10.2) 12/27/18 16:50 Magnesium 1.8 mg/dL (1.6-2.3) 12/27/18 16:50 Total Bilirubin 0.3 mg/dL (0.2-1.3) 12/27/18 16:50 AST 20 U/L (14-36) 12/27/18 16:50 ALT 24 U/L (9-52) 12/27/18 16:50 Alkaline Phosphatase 72 U/L (38-126) 12/27/18 16:50 Creatine Kinase 55 U/L (30-135) 12/27/18 16:50 Total Protein 8.7 g/dL (6.3-8.2) H 12/27/18 16:50 Albumin 5.0 g/dL (3.5-5.0) 12/27/18 16:50 Triglycerides 109 mg/dL (<150) 12/28/18 08:43 Cholesterol 192 mg/dL (<200) 12/28/18 08:43 LDL Cholesterol, Calc 126 mg/dL (0-99) H 12/28/18 08:43 HDL Cholesterol 44 mg/dL (40-60) 12/28/18 08:43 TSH 0.965 mIU/L (0.465-4.680) 12/28/18 08:43 Urine HCG, Qual Not Detected (Not Detectd) 12/27/18 14:00 Urine Opiates Screen Not Detected (NotDetected) 12/27/18 14:00 Ur Oxycodone Screen Not Detected (NotDetected) 12/27/18 14:00 Urine Methadone Screen Not Detected (NotDetected) 12/27/18 14:00 Ur Propoxyphene Screen Not Detected (NotDetected) 12/27/18 14:00 Ur Barbiturates Screen Not Detected (NotDetected) 12/27/18 14:00 U Tricyclic Antidepress Not Detected (NotDetected) 12/27/18 14:00 Ur Phencyclidine Scrn Not Detected (NotDetected) 12/27/18 14:00 Ur Amphetamines Screen Not Detected (NotDetected) 12/27/18 14:00 U Methamphetamines Scrn Not Detected (NotDetected) 12/27/18 14:00 U Benzodiazepines Scrn Not Detected (NotDetected) 12/27/18 14:00 Urine Cocaine Screen Not Detected (NotDetected) 12/27/18 14:00 U Marijuana (THC) Screen Not Detected (NotDetected) 12/27/18 14:00 Vital Signs Temp 98.1 F 01/04/19 06:31 Pulse 85 01/04/19 06:31 Resp 18 01/04/19 06:31 BP 119/70 01/04/19 06:31 Pulse Ox 100 12/28/18 00:06 Patient Condition at Discharge: Stable Plan - Discharge Summary New Discharge Prescriptions: New traZODone HCL [Desyrel] 50 mg PO HS #28 tab Ibuprofen [Motrin] 400 mg PO TID PRN #21 tab PRN Reason: Headache Pantoprazole [Protonix] 40 mg PO AC-BRKFST #28 tablet. Sertraline [Zoloft] 100 mg PO DAILY #28 tab Discharge Medication List Ibuprofen [Motrin] 400 mg PO TID PRN #21 tab 01/04/19 [Rx] Pantoprazole [Protonix] 40 mg PO AC-BRKFST #28 tablet. 01/04/19 [Rx] Sertraline [Zoloft] 100 mg PO DAILY #28 tab 01/04/19 [Rx] traZODone HCL [Desyrel] 50 mg PO HS #28 tab 01/04/19 [Rx] Follow up Appointment(s)/Referral(s): Contreras Watters MD [Primary Care Provider] - 1-2 days Activity/Diet/Wound Care/Special Instructions: Activity and diet as tolerated. No guns or weapons in the home. Refrain from alcohol and street drugs not prescribed by your physicians. Take all your medications as prescribed, and attend all your follow up appointments as scheduled. If in need of medication refills, please go to your primary care physicians, or your out patient psychiatrist. If in crisis, please call or go to your nearest ER for an evaluation. Discharge Disposition: HOME SELF-CARE
== END 2019-01-04 13:18 | disposition home or self-care (01) | DRG 885 ==
LOC: EC 12:48 → 3MHU 22:40
PROVIDERS: ADMIT Psychiatry & Neurology Psychiatry; ATTEND Psychiatry & Neurology Psychiatry
DX: F32.2 Major depressive disorder, single episode, severe without psychotic features (principal); R45.851 Suicidal ideations; F41.9 Anxiety disorder, unspecified; G47.00 Insomnia, unspecified; Z79.899 Other long term (current) drug therapy; Z81.8 Family history of other mental and behavioral disorders
CPT/HCPCS: 36415; 70450; 80053; 80061; 80306; 81025; 82075; 82550; 83036; 83735; 84443; 85025; 99285